=== PATIENT | female | born 2000 | race Caucasian/White ===

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

== ENCOUNTER 2021-01-24 00:56 | Emergency (ER) | payer OTHER ==
[~2021-01-24] VITALS: Ht 172.7 cm; Wt 118.8 kg
[~2021-01-24 00:56] MED LIST changes: +ZOLOFT 50 MG TA50 MG PO; -ZOLOFT50 MG PO
[2021-01-24] MEDS ORDERED: JUNEL FE 1.5-31 EACH PO (01:33)
[2021-01-24 02:13] LABS: BASOPHILS 0.4 % (0.0-2.0); EOSINOPHILS 0.6 % (0.0-3.0); HEMATOCRIT 37.4 % (37.0-47.0); HEMOGLOBIN 12.6 gm/dL (12.0-15.0); LYMPHOCYTES 10.6 % (24.0-44.0); MCHC 33.6 g/dL (28.0-37.0); MCV 86.2 fL (80.0-100.0); MONOCYTES 6.8 % (1.0-8.0); PLATELET COUNT 233 thou/uL (150-400); POLYS 81.6 % (36.0-66.0); RBC 4.34 mil/uL (4.20-5.00); WBC 6.9 thou/uL (4.0-11.0)
[2021-01-24 02:16] LABS: CALCIUM 8.8 mg/dL (8.5-10.1); CREATININE 1.3 mg/dL (0.6-1.0); POTASSIUM 3.3 mmol/L (3.5-5.1)
[2021-01-24 02:21] LABS: ALBUMIN 3.5 g/dL (3.4-5.0); TOTAL BILIRUBIN 0.5 mg/dL (0.2-1.0); TOTAL PROTEIN 7.1 g/dL (6.4-8.2)
[2021-01-24 03:39] LABS: URINE BILIRUBIN NEGATIVE (Negative); URINE BLOOD 3+ (Negative); URINE CLARITY CLEAR; URINE COLOR YELLOW; URINE GLUCOSE-RANDOM* NEGATIVE (Negative); URINE KETONES 1+ (Negative); URINE LEUKOCYTES-REFLEX NEGATIVE (Negative); URINE NITRITE-REFLEX NEGATIVE (Negative); URINE PROTEIN (DIPSTICK) NEGATIVE (Negative); URINE SPECIFIC GRAVITY 1.015 (1.005-1.035); URINE UROBILINOGEN 0.2 E.U./dl (0.2-1.0)
[2021-01-24 03:41] LABS: BACTERIA-REFLEX 1-9 Few /HPF (None Seen); CASTS None Seen /LPF (None Seen); CRYSTALS None Seen /LPF (None Seen); MUCUS 0-3 Light strn/LPF (None Seen); SQUAMOUS 0-3 Few /LPF (0-3); URINE WBC-REFLEX 0-5 Rare /HPF (0-5)
[2021-01-24] MEDS ORDERED: ZOFRAN ODT4 MG PO (05:47)
[2021-01-24] MEDS ORDERED: PERCOCET 5-3251 EACH PO (05:47)
[2021-01-24 06:07] VITALS: BP 125/79
== END 2021-01-24 06:00 | disposition home or self-care (01) ==
LOC: ER 00:56
PROVIDERS: Emergency Medicine
DX: N20.0 Calculus of kidney (principal); N83.201 Unspecified ovarian cyst, right side; Z79.899 Other long term (current) drug therapy; Z88.1 Allergy status to other antibiotic agents; Z88.2 Allergy status to sulfonamides; Z91.018 Allergy to other foods; Z91.012 Allergy to eggs